=== PATIENT | female | born 1950 | race Caucasian/White ===

== ENCOUNTER → 2016-07-08 | Outpatient (CLI) | payer MEDICARE, OTHER ==
--- NOTE | 2016-07-08 18:41 | RESP ---
DATE OF SERVICE: 07/08/2016 The patient's FVC was 2.3, which is 77% predicted, FEV1 was 1.94, which is 85% predicted. FEV1/FVC ratio was normal. No bronchodilators were given. Total lung capacity was not obtained. Vital capacity was 72% predicted. Diffusion capacity was 89% predicted. IMPRESSION: 1. No significant obstructive airway disease by spirometry. 2. No bronchodilators were given. 3. Lung volumes could not be performed 4. Normal diffusion capacity. GURPREET COLVIN MD DR: INDY/brent JOB#: [id number] / [id number] JAE Kenyon MD [facility]TDD
== END | disposition home or self-care (01) ==
LOC: PF 10:47
PROVIDERS: ATTEND Internal Medicine Pulmonary Disease
DX: R06.02 Shortness of breath (principal)
CPT/HCPCS: 94010; 94729

== ENCOUNTER → 2016-07-14 | Outpatient (CLI) | payer MEDICARE, OTHER ==
--- NOTE | 2016-07-15 17:46 | SLEEP ---
DATE OF STUDY: 07/14/2016 ATTENDING PHYSICIAN: Dr. Kyler Marin. The patient is a 66 years old, who weighs 245 pounds with a BMI of 43. Stambaugh score was 12. Sleep study was performed at [facility]. This was a split night study. During the night study, patient spent 427 minutes in bed and slept for 385 minutes with a sleep efficiency of 90%. Sleep latency was 12 minutes with a REM latency of 87 minutes. Overall, sleep architecture showed normal stage 1 and stage 2 sleep, increased slow wave and normal REM sleep. During the initial diagnostic portion of the study, the patient slept for 119 minutes. During the time, there were 12 obstructive apneas and 46 hypopneas. No mixed or central apneas seen. The patient's apnea hypopnea index was 29 per hour. Supine index 33 per hour. REM sleep was not seen during the diagnostic portion of the study. EKG monitoring revealed normal sinus rhythm, average heart rate was 72 beats per minute, no sustained arrhythmias were observed. Review of nocturnal oximetry study during the diagnostic portion revealed a mean oxygen saturation of 94% with the lowest of 81%. 17% of time, oxygen saturation remained between 80% and 89%. PLMS were seen at index of 14 per hour and 3 per hour caused EEG arousals. The patient met the criteria for CPAP initiation. It was started at 5 cm of water and titrated up to 9 cm of water. At the final pressure, the patient is 75 minutes of sleep. Supine as well as REM sleep was observed. AHI was reduced to 0 per hour and oxygen saturation remained above 88%. The patient used small size nasal pillows. IMPRESSION: 1. Oodbmrxk-va-qkufuv sleep apnea-hypopnea syndrome. Total apnea-hypopnea index of 29 per hour, supine apnea-hypopnea index of 33 per hour. 2. Nocturnal hypoxia secondary to obstructive sleep apnea, but resolved with CPAP. 3. Mild periodic limb movements during sleep without any significant electroencephalogram arousals. This does not need to be treated. RECOMMENDATIONS: 1. CPAP at 9 cm of water completely eliminated the patient's sleep apnea, and should be used on a nightly basis. 2. Follow up in 4-6 weeks to assess compliance with CPAP and to document clinical improvement. 3. Weight loss is strongly advised. 4. Avoid [employer] depressants. 5. Caution regarding driving until symptoms of sleep apnea resolve with the use of CPAP. GURPREET COLVIN MD DR: INDY/brent JOB#: [id number] / [id number] Kyler Garber MD [facility]
== END | disposition home or self-care (01) ==
LOC: SLPLAB 18:46
PROVIDERS: ATTEND Internal Medicine Pulmonary Disease
DX: G47.33 Obstructive sleep apnea (adult) (pediatric) (principal)
CPT/HCPCS: 95810